=== PATIENT | female | born 1975 | race Caucasian/White ===

== ENCOUNTER 2019-03-31 08:04 | Emergency (ER) | payer OTHER ==
[~2019-03-31] VITALS: Ht 167.6 cm; Wt 57.2 kg
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
--- NOTE | 2019-03-31 08:40 | NUR ---
DR AUSTIN AT BEDSIDE
--- NOTE | 2019-03-31 09:39 | NUR ---
Patient discharged IN CUSTODY in stable condition. Written and verbal after care instructions given. Patient verbalizes understanding of instruction.
[2019-03-31 09:40] VITALS: BP 116/82
== END 2019-03-31 09:41 ==
LOC: ER 08:15
DX: S60.222A Contusion of left hand, initial encounter (principal); R56.9 Unspecified convulsions; Y08.89XA Assault by other specified means, initial encounter; Y93.89 Activity, other specified; Y92.89 Other specified places as the place of occurrence of the external cause; Y99.8 Other external cause status
CPT/HCPCS: 73110; 73130-TC; 84703-TC